=== PATIENT | male | born 1980 | race Caucasian/White ===

== ENCOUNTER 2017-10-08 11:14 | Inpatient (IN) | payer OTHER, SELFPAY ==
[~2017-10-08 11:14] MED LIST: Iopamidol 370 76% 100 ML VIAL ONE
[2017-10-08] MEDS ORDERED: Ketorolac Tromethamine 30 MG/ML VIAL ONE (12:02)
[2017-10-08 12:08] LABS: #Eosinphils 0.1 thou/uL (0.0-0.7); #Lymphocytes 1.4 thou/uL (1.20-3.40); #Monocytes 0.9 thou/uL (0.11-0.59); #Neutrophils 11.5 thou/uL (1.40-6.50); %Basophils 0.1 % (0.0-1.0); %Eosinophils 0.4 % (0.0-10.0); %Lymphocytes 10.3 % (21.0-51.0); %Monocytes 6.3 % (0.0-10.0); %Neutrophils 82.8 % (42.0-75.0); Hemoglobin 17.7 g/dL (14.0-18.0); Mean Corpuscular HGB CONC 35.2 g/dL (32.0-36.0); Mean Corpuscular Hemoglobin 32.5 pg (27.0-31.0); Mean Corpuscular Volume 92.6 fL (78.0-98.0); Mean Platelet Volume 7.4 fL (7.4-10.4); Platelet Count 211 thou/uL (130-400); RBC Distribution Width 11.6 % (11.5-14.5); Red Blood Cell (RBC) Count 5.43 mill/uL (4.70-6.10)
[2017-10-08 12:08] LABS: Bilirubin Small (Negative); Blood, Urine Negative (Negative); Glucose, Urine (Dipstick) Negative (Negative); Leukocyte Negative (Negative); Nitrite Negative (Negative); Protein, Urine (Dipstick) 100 mg/dL (Neg-Trace); Specific Gravity, Urine 1.025 (1.005-1.030)
[2017-10-08 12:11] LABS: Clarity CLEAR (Clear)
[2017-10-08 12:14] LABS: Amphetamine Not Detected (NotDetected); Barbiturates Screen Not Detected (NotDetected); Benzodiazepine Screen Not Detected (NotDetected); Cocaine Metabolite Screen Not Detected (NotDetected); Medtox Control Line Valid? VALID (VALID); Medtox Reader # READER 4; Methadone Not Detected (NotDetected); Methamphetamine Not Detected (NotDetected); Opiate Screen Detected (NotDetected); Oxycodone Screen Not Detected (NotDetected); Phencyclidine (PCP) Not Detected (NotDetected); THC/Cannabinoid Screen Not Detected (NotDetected); Tricyclic Screen Not Detected (NotDetected)
[2017-10-08 12:23] LABS: Bacteria/HPF 1+ HPF (None Seen); Hyaline Casts/LPF NONE SEEN LPF (0-3 Hyaline); RBC/HPF None Seen HPF (0-3); Squamous Epithelial 0-3 HPF (0-3); WBC/HPF 0-3 HPF (0-3)
[2017-10-08 12:32] LABS: ALT (SGPT) 44 U/L (8-55); AST (SGOT) 38 U/L (5-34); Albumin 4.3 g/dL (3.5-5.0); Alkaline Phosphatase 97 U/L (40-150); Anion Gap 17 mmol/L (10-20); BUN (Urea Nitrogen) 14 mg/dL (8.9-20.6); Bilirubin, Total 1.2 mg/dL (0.2-1.2); CK (CPK) 131 U/L (30-200); Calc. Creatinine Clearance 0 mL/min (70-130); Calcium 9.2 mg/dL (7.8-10.44); Carbon Dioxide 22 mmol/L (22-29); Chloride 103 mmol/L (98-107); Estimated GFR-MDRD 68; Globulin 3.4 g/dL (2.4-3.5); Glucose 139 mg/dL (70-105); Lipase 37 U/L (8-78); Potassium 4.5 mmol/L (3.5-5.1); Protein, Total 7.7 g/dL (6.0-8.3); Sodium 137 mmol/L (136-145)
[2017-10-08 12:35] LABS: CKMB 2.8 ng/mL (0-6.6)
--- NOTE | 2017-10-08 12:37 | RAD ---
CHEST ONE VIEW: HISTORY: Chest pain. COMPARISON: None. FINDINGS: There is dilatation of the left and right pulmonary arteries. No pneumothorax. No effusion. The ao rtic knob appears to be normal. IMPRESSION: Dilated pulmonary arteries, suggesting pulmonary artery hypertension. POS: [facility]
[2017-10-08 12:40] LABS: Troponin I 0.561 ng/mL (< 0.028)
[2017-10-08] MEDS ORDERED: Enoxaparin Sodium 100 MG/ML SYRINGE ONE (12:44)
--- NOTE | 2017-10-08 13:08 | CT ---
CT OF HEAD NONCONTRAST: INDICATION: Pain, diaphoresis, syncope. FINDINGS: There is no intracranial hemorrhage, mass effect, midline shift, or ventriculomegaly. The imaged par anasal sinuses are clear. IMPRESSION: No acute intracranial hemorrhage or mass effect. POS: [facility]
[2017-10-08] MEDS ORDERED: Ondansetron HCl/PF 4 MG/2 ML Vial ONE (13:17)
--- NOTE | 2017-10-08 13:17 | CT ---
CERVICAL SPINE CT NONCONTRAST: CLINICAL INDICATION: Pain, fall with neck injury. FINDINGS: Craniocervical junction is intact. There is no evidence of compression fracture or subluxation. The re is incidental note of ground-glass left apical opacity. IMPRESSION: 1. No acute cervical spine fracture or subluxation. 2. Ground-glass opacity of the left apex which could relate to an infectious process, such as atypic al pneumonia in the correct clinical context. POS: [facility]
--- NOTE | 2017-10-08 13:23 | CT ---
CT CHEST WITH CONTRAST WITH 3D VOLUME RENDERING: CLINICAL HISTORY: Syncopal episode with chest pain and shortness of breath. FINDINGS: There is extensive bilateral acute pulmonary thromboembolism, which involves the distal aspect of the pulmonary trunk and extensively within each main pulmonary artery and numerous bilateral segmental a nd subsegmental pulmonary arterial branches. There is associated bilateral subpleural wedge-shaped o pacification, multifocal, the largest of which is located within the superior segment, right lower lo be, compatible with multiple bilateral pulmonary infarctions. There is ground glass opacity of the le ft apex. No pleural fluid. IMPRESSION: Severe bilateral acute pulmonary emboli with associated pulmonary infarctions. Telephone call to the patient's care provider, Robert Akers, placed at 12:51 hours on 10/08/2017. CODE CR POS: [facility]
[2017-10-08 16:01] VITALS: BMI 29.0
[2017-10-08] MEDS ORDERED: Ondansetron ODT 4 MG TAB SL PRN (16:28)
[2017-10-08] MEDS ORDERED: Ondansetron HCl/PF 4 MG/2 ML Vial IVP PRN (16:28)
--- NOTE | 2017-10-08 17:19 | HP ---
PRIMARY CARE PROVIDER: Unknown. CHIEF COMPLAINT: Chest pain. HISTORY OF PRESENT ILLNESS: Mr. Gaitan is a pleasant 36-year-old gentleman who was seen at [facility] on 10/08/2017. [facility] an [facility]. He has a history of bilateral lower extremity weakness following spine surgery. Today, he went to the gym. He got out of his wheelchair and was trying to get on the weigh t machine when he developed chest pain. He reports that the pain was retrosternal, 10/10, complicate d by shortness of breath and diaphoresis. He lost consciousness. REVIEW OF SYSTEMS: All other systems reviewed and found to be negative. 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 He also rep orts right lower extremity weakness. PAST SURGICAL HISTORY: Spine surgery. SOCIAL HISTORY: The patient denies tobacco use, alcohol use or recreational drug use. FAMILY HISTORY: He reports a cousin with factor V Leiden deficiency. ALLERGIES: No known drug allergies. CURRENT MEDICATIONS: Baclofen 10 mg 3 times a day, gabapentin 100 mg 3 times a day, amlodipine 10 mg daily. PHYSICAL EXAMINATION: GENERAL: On examination, Mr. Gaitan is awake and alert, in mild distress. VITAL SIGNS: Blood pressure is 118/89, pulse 120, respiratory rate 18, and oxygen saturation 94% on 4 liters of oxygen. He is afebrile. EYES: No scleral icterus. No conjunctival pallor. ENT: Moist mucosal membranes, no oropharyngeal erythema or exudates. NECK: Supple, nontender. Trachea is midline. RESPIRATORY: Accessory muscles of breathing are not active. Chest wall movements are symmetric bila terally. LUNGS: Clear to auscultation without wheeze, rhonchi or crepitations. CARDIOVASCULAR: S1 and S2 are heard, tachycardic and regular. Peripheral pulses palpable. No carot id bruit, no pericardial rub. ABDOMEN: Soft, nontender, bowel sounds heard, no hepatomegaly, no splenomegaly. NEUROLOGIC: Cranial nerves II-XII intact. Deep tendon reflexes 2+. MUSCULOSKELETAL: Power is 5/5 in all 4 extremities. LYMPHATICS: No cervical lymphadenopathy. SKIN: Multiple tattoos. No rashes or subcutaneous nodules. PSYCHIATRIC: Normal mood, normal affect. The patient is oriented to person, place, and time. IMAGING DATA AND LABORATORY DATA: Mr. Gaitan's labs and investigations were reviewed. I reviewed his electrocardiogram, which shows sinus tachycardia, no ST changes to suggest an acute coronary synd gallo. He has S1, Q3, T3. I also reviewed his chest x-ray, which does not show any pulmonary infiltr ates. He had CT angiogram of the chest, which showed severe bilateral acute pulmonary emboli with as sociated pulmonary infarctions. Cervical spine CT scan did not show any acute C-spine fracture or prasad bluxation. He had ground glass opacity of the left apex which could relate to an infectious process such as atypical pneumonia. A noncontrast CT scan of the brain did not show any acute intracranial h emorrhage or mass effect. He has leukocytosis with 14,000 white cells, of which 82.8% are neutrophil s, normal hemoglobin, normal platelet count, D-dimer 12.76, normal electrolytes, normal creatinine, m ildly elevated AST of 38, otherwise unremarkable liver profile, elevated troponin I of 0.561. Urinal ysis positive for protein, bilirubin and bacteria, and urine drug screen positive for opiates. ASSESSMENT AND PLAN: Mr. Gaitan is a pleasant 36-year-old gentleman who was seen at [facility] on 10/08/2017. His problem list includes: 1. Syncope: Secondary to pulmonary embolism. Patient will be admitted to the hospital for further management. 2. Pulmonary embolism: He has received TPA. He will be admitted to the Critical Care Unit. He anish l be started on low molecular weight heparin later today. Pulmonology Service has been consulted. 3. Elevated troponin: Secondary to pulmonary embolism. 4. Hypertension: Monitor vital signs, titrate antihypertensives as needed. LEVEL OF RISK: High. LEVEL OF COMPLEXITY: High.
[2017-10-08] MEDS: Sodium Chloride 0.9% 1,000 ML IV SCH (17:53)
--- NOTE | 2017-10-08 19:04 | CON ---
DATE OF CONSULTATION: 10/08/2017 SERVICE: Critical Care. REASON FOR CONSULTATION: Acute PE. HISTORY OF PRESENT ILLNESS: The patient is a 36-year-old white male with past medical history signif icant for increasing fatigue and shortness of breath for about a month. This was roughly stable unti l he was transitioning off of his wheelchair onto a workout bench. He had an abrupt onset of shortne ss of breath and lost consciousness. He woke up after he hit the ground. It is left face, his left side. On awakening, he was brought to the emergency department where he discovered to have a large c lot burden of a pulmonary embolism. After going through exclusion criteria, we provided him with a d ose of TPA, which is currently being administered. He cannot provide any additional elements of the history. Otherwise, he is actually starting to feel a little bit better compared to his presentation . PAST MEDICAL HISTORY: 1. Paralysis of the left leg and paresis of the right lower extremity. 2. Pulmonary embolism, new diagnosis. 3. Hypertension. PAST SURGICAL HISTORY: Lumbar diskectomy, complicated by paraplegia/paraparesis. SOCIAL HISTORY: He is currently incarcerated. He denies any alcohol, tobacco or illicit drug use. He has no exposure to chemicals, dust, asbestos or tuberculosis. FAMILY HISTORY: Positive for a cousin with factor V Leiden deficiency. Otherwise, noncontributory. ALLERGIES: No known drug allergies. MEDICATIONS: List of his inpatient medications were reviewed. I will continue the baclofen, and aminah apentin. Amlodipine will be put on hold. REVIEW OF SYSTEMS: General, head, ears, eyes, nose, throat, cardiovascular, respiratory, musculoskel etal, neurologic, and skin is negative except as mentioned in the HPI. PHYSICAL EXAMINATION: VITAL SIGNS: Afebrile, pulse 99, respirations 23, saturation 92% on 3 liters nasal cannula. Blood p ressure 146/83. GENERAL: Patient is awake, alert, no apparent distress. LUNGS: Excellent air entry. There is no prolonged expiratory phase, wheezing, rhonchi, or crackles present. HEART: Normal rate, regular. ABDOMEN: Soft, nontender, nondistended. Bowel sounds are positive. MUSCULOSKELETAL: No cyanosis or clubbing. No pitting in the bilateral lower extremities. NEUROLOGIC: Grossly nonfocal. LABORATORY DATA: WBC 14.0, hemoglobin 17.7, platelets 211,000. Neutrophil count is 83%. D-dimer 12 .76. Basic metabolic profile and liver function studies are unremarkable. Troponin is 0.561. Urina lysis is unremarkable. Urine drug screen is positive for opiates, but otherwise negative. IMAGIN. CT of the C-spine demonstrates no acute subluxation or fracture. 2. CT of brain demonstrates no intracranial abnormality, hemorrhage or mass effect. 3. Chest x-ray demonstrates dilated pulmonary arteries suggestive of pulmonary hypertension. 4. CTA of the chest demonstrates bilateral pulmonary embolism with a fairly extensive clot burden. The right ventricle is extremely enlarged. There is flattening of the left ventricular cavity, consi stent with massive right-sided volume overload. The right atrium is dilated, left atrium and seems t o be underfilled. There is reflux of contrast fairly deep into the inferior vena cava, suggestive of right ventricular heart strain. He does have a fairly extensive clot burden in the bilateral lungs with a saddle embolus. ASSESSMENT: 1. Acute hypoxic respiratory failure. 2. Acute pulmonary embolism, submassive. 3. Non-ST elevation myocardial, secondary to demand ischemia. 4. Syncopal event associated with pulmonary embolism. DISCUSSION AND PLAN: I will check a factor V Leiden mutation. He is already on his TPA. We will st art his anticoagulation 6 hours later. Gabapentin and baclofen will be continued while the patient r emains in the hospital. Pulmonary Critical Care will continue to follow along.
[2017-10-08] MEDS: Baclofen 10 MG TAB PO SCH (21:30)
[2017-10-08] MEDS: Gabapentin 300 MG CAP PO SCH (21:30)
[2017-10-08] MEDS: Enoxaparin Sodium 100 MG/ML SYRINGE SC SCH (21:31)
[2017-10-09] MEDS: Sodium Chloride 0.9% 1,000 ML IV SCH (01:11)
[2017-10-09] MEDS: Gabapentin 300 MG CAP PO SCH ×3 (08:22→20:28)
[2017-10-09] MEDS: Baclofen 10 MG TAB PO SCH ×3 (08:22→20:28)
[2017-10-09] MEDS: Enoxaparin Sodium 100 MG/ML SYRINGE SC SCH (09:16)
[2017-10-09 09:51] LABS: #Basophils 0.1 thou/uL (0.0-0.2); #Eosinphils 0.2 thou/uL (0.0-0.7); #Lymphocytes 1.5 thou/uL (1.20-3.40); #Monocytes 0.4 thou/uL (0.11-0.59); #Neutrophils 5.4 thou/uL (1.40-6.50); %Basophils 0.8 % (0.0-1.0); %Eosinophils 2.1 % (0.0-10.0); %Lymphocytes 20.1 % (21.0-51.0); %Monocytes 5.8 % (0.0-10.0); %Neutrophils 71.3 % (42.0-75.0); Hemoglobin 15.8 g/dL (14.0-18.0); Mean Corpuscular Hemoglobin 32.6 pg (27.0-31.0); Mean Corpuscular Volume 93.2 fL (78.0-98.0); Mean Platelet Volume 7.4 fL (7.4-10.4); Platelet Count 187 thou/uL (130-400); RBC Distribution Width 11.6 % (11.5-14.5); Red Blood Cell (RBC) Count 4.86 mill/uL (4.70-6.10); White Blood Cell (WBC) Count 7.6 thou/uL (4.8-10.8)
[2017-10-09 10:14] LABS: Anion Gap 12 mmol/L (10-20); BUN (Urea Nitrogen) 13 mg/dL (8.9-20.6); Calc. Creatinine Clearance 149 mL/min (70-130); Calcium 9.2 mg/dL (7.8-10.44); Carbon Dioxide 28 mmol/L (22-29); Chloride 104 mmol/L (98-107); Estimated GFR-MDRD 82; Glucose 95 mg/dL (70-105); Sodium 140 mmol/L (136-145)
[2017-10-09] MEDS ORDERED: predniSONE 20 MG TAB PO SCH (11:15)
[2017-10-09] MEDS ORDERED: Amlodipine 10 MG TAB PO SCH (11:30)
--- NOTE | 2017-10-09 13:31 | PDOC.PN ---
- Subjective Encounter Start Date: 10/09/17 Encounter Start Time: 10:00 Pt seen for followup re: bilateral pulmonary embolism. Chest pain still +, but better. - Objective Vital Signs & Weight: Vital Signs (12 hours) Temp Pulse Resp Pulse Ox 10/09/17 12:54 86 10/09/17 12:00 98.3 F 10/09/17 08:00 97.9 F 86 18 97 10/09/17 05:00 98.5 F Weight Weight 232 lb 2.348 oz Most Recent Monitor Data Heart Rate from ECG 78 NIBP 134/83 NIBP BP-Mean 101 Respiration from ECG 17 SpO2 93 I&O: 10/08/17 10/09/17 10/10/17 06:59 06:59 06:59 Intake Total 2814 960 Output Total 2700 1660 Balance 114 -700 Result Diagrams: 10/09/17 09:40 10/09/17 09:40 Phys Exam - Physical Examination Constitutional: NAD HEENT: moist MMs, sclera anicteric, oral pharynx no lesions, 2+ tonsils Neck: no nodes, no JVD, supple, full ROM Respiratory: no wheezing, no rales, no rhonchi, clear to auscultation bilateral Cardiovascular: RRR, no rub S1, S2 Gastrointestinal: soft, non-tender, no distention, positive bowel sounds Gilbert LE weakness Psychiatric: normal affect Deviation from normal: Oriented to person and place, not to time Dx/Plan (1) Pulmonary embolism, bilateral Code(s): I26.99 - OTHER PULMONARY EMBOLISM WITHOUT ACUTE COR PULMONALE Status : Acute Comment: s/p tPA, now on Lovenox. Continue to monitor. Follow factor V mutation test. (2) Acute respiratory failure with hypoxia Code(s): J96.01 - ACUTE RESPIRATORY FAILURE WITH HYPOXIA Status: Acute Comment: Improving, due to PE (3) Elevated troponin I level Code(s): R74.8 - ABNORMAL LEVELS OF OTHER SERUM ENZYMES Status: Acute Comment: secondary to submassive pulmonary embolism - Plan * . Review of Systems - Review of Systems Constitutional: negative: fever, chills, sweats, weakness, malaise Respiratory: SOB with Excertion. negative: Cough, Shortness of Breath, Pleuritic Pain, Wheezing Cardiovascular: chest pain. negative: palpitations, orthopnea, paroxysmal nocturnal dyspnea, edema, light headedness Gastrointestinal: negative: Nausea, Vomiting, Abdominal Pain, Diarrhea, Constipation, Melena, Hematochezia, Other Genitourinary: negative: Dysuria, Frequency, Incontinence, Hematuria, Retention Skin: negative: Rash, Lesions, Gregor, Bruising - Medications/Allergies Allergies/Adverse Reactions: Allergies Allergy/AdvReac Type Severity Reaction Status Date / Time No Known Drug Allergies Allergy Verified 10/08/17 14:50 Medications: Current Medications Amlodipine Besylate (Norvasc) 10 mg PO DAILY [facility] Apixaban (Eliquis) 10 mg PO BID [facility] Stop: 10/16/17 21:01 Apixaban (Eliquis) 5 mg PO BID [facility] Baclofen (Lioresal) 10 mg PO TID [facility] Last Admin: 10/09/17 08:22 Dose: 10 mg Gabapentin (Neurontin) 600 mg PO TID [facility] Last Admin: 10/09/17 08:22 Dose: 600 mg Prednisone (Prednisone) 20 mg PO QA-[facility] Stop: 10/13/17 08:01
--- NOTE | 2017-10-09 13:43 | PRG ---
DATE OF SERVICE: 10/09/2017 SERVICE: Pulmonary Medicine. INTERVAL HISTORY: The patient is doing fine from a respiratory standpoint. He denies any recurrent chest pain, nausea, vomiting, fevers, or chills. His breathing is more comfortable. It is less labo red. He continues to have some pleuritic chest discomfort. Otherwise, he feels like he is moving in the right direction. PHYSICAL EXAMINATION: VITAL SIGNS: Afebrile, pulse 84, blood pressure 126/80, respirations were 24, saturation 97% on 3 li ters nasal cannula. GENERAL: The patient is awake, alert, in no apparent distress. LUNGS: Decent air entry. There is no prolonged expiratory phase. No wheezing, rhonchi, or crackles are appreciated. HEART: Normal rate, regular. ABDOMEN: Soft, nontender, nondistended. Bowel sounds are positive. MUSCULOSKELETAL: No cyanosis or clubbing. There is no pitting in the bilateral lower extremities. NEUROLOGIC: Grossly nonfocal. LABORATORY DATA: WBC 7.6, hemoglobin 15.8, platelets 187,000. Creatinine 1.03 and downtrending. Ba sic metabolic profile is, otherwise, unremarkable. ASSESSMENT: 1. Acute hypoxic respiratory failure, resolved. 2. Acute pulmonary embolism, submassive. 3. [id number] myocardial infarction secondary to demand ischemia. 4. Syncopal event associated with pulmonary embolism. DISCUSSION AND PLAN: Factor V Leiden mutation is currently pending. We will resume his amlodipine. He can be transitioned to the telemetry unit. If he continues to do well tomorrow, he can be conver elle over to a direct oral anticoagulant and/or Coumadin based on preference and discharge from the hospital. We will continue to follow along while he remains in this location.
[2017-10-09 15:04] LABS: Troponin I 0.532 ng/mL (< 0.028)
[2017-10-09] MEDS ORDERED: Ibuprofen 600 MG TAB PO PRN (15:07)
[2017-10-09] MEDS ORDERED: Ketorolac Tromethamine 30 MG/ML VIAL IVP PRN (18:10)
[2017-10-09] MEDS: Apixaban 5 MG TAB PO SCH (20:28)
[2017-10-10 07:54] LABS: #Eosinphils 0.1 thou/uL (0.0-0.7); #Lymphocytes 2.3 thou/uL (1.20-3.40); #Monocytes 0.6 thou/uL (0.11-0.59); #Neutrophils 6.9 thou/uL (1.40-6.50); %Basophils 0.5 % (0.0-1.0); %Eosinophils 0.9 % (0.0-10.0); %Lymphocytes 23.4 % (21.0-51.0); %Monocytes 5.9 % (0.0-10.0); %Neutrophils 69.3 % (42.0-75.0); Hemoglobin 16.3 g/dL (14.0-18.0); Mean Corpuscular HGB CONC 33.6 g/dL (32.0-36.0); Mean Corpuscular Hemoglobin 31.4 pg (27.0-31.0); Mean Corpuscular Volume 93.5 fL (78.0-98.0); Mean Platelet Volume 7.8 fL (7.4-10.4); Platelet Count 202 thou/uL (130-400); RBC Distribution Width 11.6 % (11.5-14.5); Red Blood Cell (RBC) Count 5.19 mill/uL (4.70-6.10); White Blood Cell (WBC) Count 9.9 thou/uL (4.8-10.8)
[2017-10-10] MEDS ORDERED: predniSONE 20 MG TAB PO SCH (08:00)
[2017-10-10 08:15] LABS: Anion Gap 18 mmol/L (10-20); BUN (Urea Nitrogen) 14 mg/dL (8.9-20.6); Calc. Creatinine Clearance 154 mL/min (70-130); Calcium 9.5 mg/dL (7.8-10.44); Carbon Dioxide 23 mmol/L (22-29); Chloride 104 mmol/L (98-107); Estimated GFR-MDRD 86; Glucose 131 mg/dL (70-105); Potassium 3.8 mmol/L (3.5-5.1); Sodium 141 mmol/L (136-145)
[2017-10-10 08:19] LABS: Troponin I 0.236 ng/mL (< 0.028)
[2017-10-10] MEDS: Gabapentin 300 MG CAP PO SCH ×3 (08:59→20:58)
[2017-10-10] MEDS: Baclofen 10 MG TAB PO SCH ×3 (08:59→20:58)
[2017-10-10] MEDS: Apixaban 5 MG TAB PO SCH (08:59)
[2017-10-10] MEDS ORDERED: Amlodipine 10 MG TAB PO SCH (09:00)
[2017-10-10] MEDS ORDERED: Ketorolac Tromethamine 10 MG TAB PO PRN (11:24)
[2017-10-10 14:42] VITALS: TEMP 98.1
[2017-10-10 15:51] VITALS: BP 133/84
[2017-10-10] MEDS ORDERED: Acetaminophen/Codeine 30-300mg Tablet PO PRN ×3 (16:38→16:50)
[2017-10-10] MEDS ORDERED: Enoxaparin Sodium 120 MG/0.8 ML SYRINGE SC SCH (21:00)
--- NOTE | 2017-10-10 23:36 | DIS ---
PRIMARY CARE PROVIDER: Unknown. DATE OF ADMISSION: 10/08/2017 DATE OF DISCHARGE: 10/10/2017 DISCHARGE DIAGNOSES: 1. Pulmonary embolism, bilateral. 2. Syncope. 3. Elevated troponin secondary to pulmonary embolism. CONDITION OF PATIENT ON THE DAY OF DISCHARGE: Stable. I assessed Mr. Gaitan on the day of dischar ge. He denies any fevers or chills. He reports the chest pain is better. Vital signs are stable. S1 and S2 are heard, regular. Lungs are clear to auscultation bilaterally. CONSULTATIONS DURING THIS HOSPITALIZATION: Pulmonology, Dr. Orourke. DISCHARGE MEDICATIONS: Apixaban 10 mg 2 times a day until 10/16/2017 and then 5 mg 2 times a day sta rting 10/17/2017. Prednisone 10 mg in the morning x3 more days, ketorolac 10 mg every 8 hours as nee ded, prescription for 10 doses, amlodipine 10 mg daily, baclofen 10 mg 3 times a day, gabapentin 100 mg 2 times a day. HOSPITAL COURSE: Mr. Weiss is a pleasant 36-year-old gentleman who was admitted to [facility] on 10/08/2017 for bilateral pulmonary embolism and syncope. Please refer to my hist ory and physical note dated 10/08/2017 for further details. He was seen by Pulmonology Service. He received TPA at the time of admission and was subsequently started on Lovenox. He was switched over to Eliquis and continues to improve. He continues to have on and off right-sided chest pain, but it is getting better. Factor V Leiden test was sent out during this hospitalization. At the time of this dictation, this t est is not available. He is advised to follow up with his primary care provider in the senior care system and obtain a copy of this test. On the day of discharge, he has an unremarkable CBC and an unremarkable basic metabolic profile. Tro ponin I was elevated at 0.561 on the day of admission, decreased to 0.236 on the day of discharge. DISCHARGE DESTINATION: Half-Way. TOTAL AMOUNT OF TIME SPENT COORDINATING THIS DISCHARGE: 35 minutes. Risks versus benefits of all new medications were discussed with the patient, including but not limit ed to increased risk of bleeding. Patient expressed understanding and agreement with the treatment p benito. ADDENDUM: After discussion with the senior care pharmacist as well as senior care staff, following changes wer e made to the patient's medications since some of the medications were not available [facility]. He will not be using Eliquis or Toradol. He will instead be on Lovenox 110 mg subcutaneously every 12 hours as well as Tylenol No. 3 one or two tablets every 6 hours as needed. He will also be on Colace 100 mg twice daily. The rest of the medications as dictated in the previous discharge sum eileen remain the same.
[2017-10-17] MEDS ORDERED: Apixaban 5 MG TAB PO SCH (21:00)
== END 2017-10-10 22:00 | disposition home or self-care (01) | DRG 175 ==
LOC: ERS 11:14 → CCU 15:57 → 2NO 10-09 16:54
PROVIDERS: ADMIT Internal Medicine; ATTEND Internal Medicine
DX: I26.99 Other pulmonary embolism without acute cor pulmonale (principal); J96.01 Acute respiratory failure with hypoxia; I21.A1 Myocardial infarction type 2; I10 Essential (primary) hypertension; R55 Syncope and collapse
CPT/HCPCS: 36415; 70450; 71045; 71275; 72125; 80048; 80053; 80306; 81003; 81015; 81241; 82550; 82553; 83690; 84484; 85025; 85379; 93005; 96365; 96374; 96375; 96376; A4216; J1650; J1885; J2270; J2405; J2997; J7506